=== PATIENT | male | born 1975 | race Caucasian/White ===

== ENCOUNTER → 2017-12-31 | Outpatient (CLI) | payer OTHER ==
[~2017-12-31] VITALS: Ht 172.7 cm; Wt 74.8 kg
[~2017-12-31] MED LIST: NOHOMEMEDICATIONS; NORCO 5-325 TA1 EACH PO
[2017-12-31 15:50] VITALS: BP 159/98
--- NOTE | 2017-12-31 16:20 | NUR ---
1540:PT., , AND SON ARRIVED TO DEPT--PT. AND SON TO RECEIVE RABIES VACCINE SECONDARY TO GETTING BIT BY A PITBULL DOG LAST Thursday12/26/17. THEY HAVE SINCE FOUND OUT THAT THE DOG WAS NOT CURRENT ON VACCINES, SO THEY ARE PROCEEDING WITH RABIES SERIES. PT. AND FAMILY ARE VERY PLEASANT AND COOPERATIVE. MADE COMFORTABLE IN CHAIRS. 1605: HEALTH HX OBTAINE BY THIS RN AND Chana ADHIKARI RN GAVE PT. RABIES IM INJECTION IN HIS RT. DELTOID AT THIS TIME. PT. TOLERATED THIS WELL. 1620:PT. AND FAMILY LEFT AT THIS TIME, STABLE CONDITION. NO ADVERSE REACTION TO VACCINE NOTED. PT'S BP AT 1550 WAS SLIGHLTY ELEVATED AT 159/98- EVEN AFTER CHECKING 3 TIMES. PT. WAS FEELING NERVOUS ABOUT THE INJECTION, BUT OTHERWISE ASYMTOMATIC WITH BP.
== END ==
LOC: M.INFUS 15:30
DX: T14.8XXA Other injury of unspecified body region, initial encounter (principal); W54.0XXA Bitten by dog, initial encounter; Y93.89 Activity, other specified; Y92.89 Other specified places as the place of occurrence of the external cause; Y99.8 Other external cause status

== ENCOUNTER → 2018-01-03 | Outpatient (CLI) | payer OTHER | LOC: M.INFUS 09:00 | DX: T14.8XXA Other injury of unspecified body region, initial encounter (principal); W54.0XXA Bitten by dog, initial encounter ==

== ENCOUNTER → 2018-01-10 | Outpatient (CLI) | payer OTHER | LOC: M.INFUS 09:00 | DX: Z23 Encounter for immunization (principal); T14.8XXA Other injury of unspecified body region, initial encounter; W54.0XXA Bitten by dog, initial encounter; Y93.89 Activity, other specified; Y92.89 Other specified places as the place of occurrence of the external cause; Y99.8 Other external cause status ==

== ENCOUNTER → 2018-01-17 | Outpatient (CLI) | payer OTHER | LOC: M.INFUS 09:00 | DX: Z23 Encounter for immunization (principal); T14.8XXA Other injury of unspecified body region, initial encounter; W54.0XXA Bitten by dog, initial encounter; Y93.89 Activity, other specified; Y92.89 Other specified places as the place of occurrence of the external cause; Y99.8 Other external cause status ==